=== PATIENT | female | born 1990 | race Hispanic/Latino ===

== ENCOUNTER 2019-01-27 07:50 | Emergency (ER) | payer MEDICAID ==
[2019-01-27] MEDS ORDERED: TYLENOL PO ONE (08:03)
[2019-01-27] MEDS ORDERED: ZOVIRAX PO NR (08:03)
[2019-01-27] MEDS ORDERED: BICILLIN L-A IM ONE (08:03)
--- NOTE | 2019-01-27 08:03 | Emergency Department Report ---
HPI - General Chief Complaint: Allergic Reaction Time Seen by Provider: 01/27/19 07:57 - HPI HPI: 28 yo female, gravid, with cold sore on lower lip and sinus pain. Her ob put her on "pill for cold sore" and the urgent care has her on amox - today is day 2. She has taken no tylenol for pain. She comes to ER with lip and face pain. No fever or chills. No abd pain. No vag bleed, discharge or lesions. ambulatory and nontoxic on exam. ED Past Medical Hx - Past Medical History Previous Medical History?: No - Surgical History Past Surgical History?: Yes Additional Surgical History: lap/ c section/ lep - Social History Smoking Status: Never Smoker Substance Use Type: None ED Review of Systems ROS: Stated complaint: INFECTION/FACE SWELLING Other details as noted in HPI Comment: All other systems reviewed and negative Physical Exam - Physical Exam Vital Signs: Vital Signs 01/27/19 07:52 Temperature 98.3 F Pulse Rate 81 Respiratory 18 Rate Blood Pressure 112/39 Physical Exam: cold sore lower left lip gravid without related complaint pos left max sinus tenderness no fever no edema s1s2 lungs cta abd snt no cva tenderness throat normal TM normal bilaterally no rash no lymphadenopathy no ludwigs/abscess ED Course Vital Signs 01/27/19 07:52 Temperature 98.3 F Pulse Rate 81 Respiratory 18 Rate Blood Pressure 112/39 ED Medical Decision Making - Medical Decision Making bicillin IM tylenol and acycolvir PO pt educated on and her current illness--treatment options/steroids limited pt taking po, ambulatory and nontoxic Vital Signs 01/27/19 07:52 Temperature 98.3 F Pulse Rate 81 Respiratory 18 Rate Blood Pressure 112/39 - Differential Diagnosis urti Critical care attestation.: If time is entered above; I have spent that time in minutes in the direct care of this critically ill patient, excluding procedure time. ED Disposition Clinical Impression: URTI (acute upper respiratory infection), Cold sore, Disposition: DC-01 TO HOME OR SELFCARE Is pt being admited?: No Does the pt Need Aspirin: No Condition: Stable Instructions: Upper Respiratory Infection (ED) Additional Instructions: continue your antibiotic tylenol for pain follow up with obgyn this week Referrals: MARTI LO MD [Staff Physician] - 3-5 Days Time of Disposition: 08:35
[2019-01-27 08:45] VITALS: BP 118/50
== END 2019-01-27 08:44 | disposition home or self-care (01) ==
LOC: ED 07:50
DX: O99.511 Diseases of the respiratory system complicating pregnancy, first trimester (principal); J06.9 Acute upper respiratory infection, unspecified; O98.511 Other viral diseases complicating pregnancy, first trimester; B00.1 Herpesviral vesicular dermatitis; Z3A.00 Weeks of gestation of pregnancy not specified
CPT/HCPCS: 96372; 99282; J0561